=== PATIENT | male | born 1935 | race Caucasian/White ===

== ENCOUNTER 2019-12-07 13:27 | Emergency (ER) | payer MEDICARE, BC ==
[2019-12-07] MEDS: Lidocaine 2% Jelly 10 ML Urojet MUCMEM ONE (14:42)
--- NOTE | 2019-12-07 15:36 | EDM.PDOC ---
ED HPI GENERAL MEDICAL PROBLEM - General Chief Complaint: Genitourinary Problem Stated Complaint: UNABLE TO URINATE/PAIN Time Seen by Provider: 12/07/19 15:00 Source of Information: Reports: Patient History Limitations: Reports: No Limitations - History of Present Illness INITIAL COMMENTS - FREE TEXT/NARRATIVE: This is an 84 year old male who presents with concerns of urinary retention. He has a history of BPH. He began having lower abdominal discomfort and inability to urinate today. He has no history of this. He is otherwise feeling well. His is visiting the area from the [facility]. urinary Pain Score (Numeric/FACES): 7 - Related Data Allergies Allergy/AdvReac Type Severity Reaction Status Date / Time hydroxyzine [From Vistaril] Allergy Other Verified 12/07/19 13:52 oxycodone Allergy Other Verified 12/07/19 13:52 Home Meds: Home Meds Allopurinol [Zyloprim] 100 mg PO BID 12/07/19 [History] Aspirin 325 mg PO DAILY 12/07/19 [History] Cholecalciferol (Vitamin D3) [Vitamin D3] 1,000 unit PO BID 12/07/19 [History] Furosemide [Lasix] 40 mg PO DAILY 12/07/19 [History] Gabapentin [Neurontin] 300 mg PO BID 12/07/19 [History] Nystatin 15 gm TP BID #1 powder 12/07/19 [Rx] Pioglitazone [Actos] 15 mg PO DAILY 12/07/19 [History] Saw [place] 160 mg PO DAILY 12/07/19 [History] Simvastatin [Zocor] 40 mg PO BEDTIME 12/07/19 [History] Tamsulosin [Tamsulosin 24 Hr] 0.4 mg PO DAILY 12/07/19 [History] Timolol [Betimol] 1 drop EYEBOTH BID 12/07/19 [History] lisinopriL [Lisinopril] 40 mg PO DAILY 12/07/19 [History] metFORMIN [Glucophage] 1,000 mg PO BIDMEALS 12/07/19 [History] Past Medical History HEENT History: Reports: Cataract, Glaucoma Cardiovascular History: Reports: High Cholesterol, Hypertension Genitourinary History: Reports: Prostate Disorder Neurological History: Reports: CVA Endocrine/Metabolic History: Reports: Diabetes, Type II, Vitamin D Deficiency Oncologic (Cancer) History: Reports: Other (See Below) Other Oncologic History: skin cancer - Past Surgical History HEENT Surgical History: Reports: Cataract Surgery, Eye Surgery Musculoskeletal Surgical History: Reports: Knee Replacement Social & Family History - Tobacco Use Smoking Status *Q: Never Smoker - Caffeine Use Caffeine Use: Reports: Coffee - Recreational Drug Use Recreational Drug Use: No ED ROS GENERAL - Review of Systems Review Of Systems: See Below Constitutional: Reports: No Symptoms HEENT: Reports: No Symptoms Respiratory: Reports: No Symptoms Cardiovascular: Reports: No Symptoms Endocrine: Reports: No Symptoms GI/Abdominal: Reports: No Symptoms : Reports: Urinary Retention Musculoskeletal: Reports: No Symptoms Skin: Reports: No Symptoms Neurological: Reports: No Symptoms Psychiatric: Reports: No Symptoms Hematologic/Lymphatic: Reports: No Symptoms Immunologic: Reports: No Symptoms ED EXAM, RENAL/ - Physical Exam Exam: See Below Exam Limited By: No Limitations General Appearance: Alert, No Apparent Distress Ears: Normal External Exam Nose: Normal Inspection Throat/Mouth: Normal Inspection Head: Atraumatic, Normocephalic Neck: Normal Inspection Respiratory/Chest: No Respiratory Distress, Lungs Clear Cardiovascular: Regular Rate, Rhythm GI/Abdominal: Soft, Non-Tender Back Exam: Normal Inspection Extremities: Normal Inspection Neurological: Alert, Oriented Psychiatric: Normal Affect, Normal Mood Skin Exam: Warm, Dry, Other (patches of erythema below right pannus) Course - Vital Signs Last Recorded V/S: Last Vital Signs Temp 36.4 C 12/07/19 14:05 Pulse 70 12/07/19 14:05 Resp 20 12/07/19 14:05 BP 181/83 H 12/07/19 14:05 Pulse Ox 99 12/07/19 14:05 - Orders/Labs/Meds Orders: Active Orders 24 hr Category Date Time Status Insert Fletcher Catheter [Insert Urinary Catheter] [OM.PC] Care 12/07/19 15:00 Ordered Q24H Urinary Catheter Assessment [RC] ASDIRECTED Care 12/07/19 14:55 Active Labs: Laboratory Tests 12/07/19 Range/Units 15:02 Urine Color Yellow (YELLOW) Urine Appearance Clear (CLEAR) Urine pH 5.5 (5.0-8.0) Ur Specific [place] 1.025 (1.008-1.030) Urine Protein Negative (NEGATIVE) mg/dL Urine Glucose (UA) Negative (NEGATIVE) mg/dL Urine Ketones Negative (NEGATIVE) mg/dL Urine Occult Blood Small H (NEGATIVE) Urine Nitrite Negative (NEGATIVE) Urine Bilirubin Negative (NEGATIVE) Urine Urobilinogen 0.2 (0.2-1.0) EU/dL Ur Leukocyte Esterase Negative (NEGATIVE) Urine RBC 5-10 H (0-5) Urine WBC 0-5 (0-5) Ur Epithelial Cells Not seen Amorphous Sediment Few Urine Bacteria Not seen Urine Mucus Not seen Meds: Medications Discontinued Medications Generic Name Dose Route Start Last Admin Trade Name Freq PRN Reason Stop Dose Admin Lidocaine HCl 10 ml 12/07/19 14:36 12/07/19 14:42 Xylocaine 2% Jelly MUCMEM 12/07/19 14:37 10 ml ONETIME ONE Administration - Re-Assessments/Exams Free Text/Narrative Re-Assessment/Exam: 84 yo presents with urinary retention. History of BPH. Symptoms likely due to this. Fletcher catheter successfully placed. UA clean. Will follow up with PCP for catheter removal once back in the [facility]. Nystatin powder yeast infection below right pannus 12/07/19 15:39 Departure - Departure Time of Disposition: 15:34 Disposition: Home, Self-Care 01 Clinical Impression: Urinary retention - Discharge Information Prescriptions: Nystatin 15 gm TP BID #1 powder Instructions: Indwelling Urinary Catheter Care, Adult Referrals: PCP,None [Primary Care Provider] - Forms: ED Department Discharge Additional Instructions: You are having urinary retention, likely due to your enlarged prostate. You will need to follow up with your primary doctor when you get home to discuss removal of the catheter. Use the prescribed powder for the redness around your groin. Sepsis Event Note (ED) - Evaluation Sepsis Screening Result: No Definite Risk - Focused Exam Vital Signs: Vital Signs Temp Pulse Resp BP Pulse Ox 12/07/19 14:05 36.4 C 70 20 181/83 H 99 12/07/19 13:43 36.4 C 69 16 222/100 H 98 - My Orders Last 24 Hours: My Active Orders 12/07/19 14:55 Urinary Catheter Assessment [RC] ASDIRECTED 12/07/19 15:00 Insert Fletcher Catheter [Insert Urinary Catheter] [OM.PC] Q24H - Assessment/Plan Last 24 Hours: My Active Orders 12/07/19 14:55 Urinary Catheter Assessment [RC] ASDIRECTED 07/01/20 15:00 Insert Fletcher Catheter [Insert Urinary Catheter] [OM.PC] Q24H
== END 2019-12-07 15:51 | disposition home or self-care (01) ==
LOC: JP.ED 13:27
DX: N40.1 Benign prostatic hyperplasia with lower urinary tract symptoms (principal); R33.8 Other retention of urine; E78.00 Pure hypercholesterolemia, unspecified; I10 Essential (primary) hypertension; Z86.73 Personal history of transient ischemic attack (TIA), and cerebral infarction without residual deficits; E11.9 Type 2 diabetes mellitus without complications; Z79.84 Long term (current) use of oral hypoglycemic drugs; Z88.5 Allergy status to narcotic agent; Z88.8 Allergy status to other drugs, medicaments and biological substances; Z79.82 Long term (current) use of aspirin; Z79.899 Other long term (current) drug therapy
CPT/HCPCS: 51702; 51798; 81001; 99283